=== PATIENT | female | born 1945 | race Hispanic/Latino ===

== ENCOUNTER 2017-06-13 07:52 | Day surgery (SDC) | payer OTHER ==
[~2017-06-13] VITALS: Ht 154.9 cm; Wt 83.5 kg
[~2017-06-13 07:52] MED LIST: OMEP20CA10 PO; SODIUM CHLORIDE 0.9% 1000ML 1,000 ML IV ONE; TRAM50TA4 PO
[2017-06-13 08:52] VITALS: BP 130/64
[2017-06-13] MEDS ORDERED: PROPOFOL 10 MG/ML 20ML VIAL IV ONE (10:31)
[2017-06-13 10:47] VITALS: BP 91/48
[2017-06-13 11:12] VITALS: BP 123/57
== END 2017-06-13 11:25 ==
LOC: DAH 07:52
PROVIDERS: ATTEND Internal Medicine Gastroenterology
DX: Z12.11 Encounter for screening for malignant neoplasm of colon (principal); K21.9 Gastro-esophageal reflux disease without esophagitis; M19.90 Unspecified osteoarthritis, unspecified site; K57.30 Diverticulosis of large intestine without perforation or abscess without bleeding; Z79.899 Other long term (current) drug therapy; Z68.32 Body mass index [BMI] 32.0-32.9, adult; K63.5 Polyp of colon
CPT/HCPCS: 45380; 88305; A4606; J2704; J7030

== ENCOUNTER 2019-01-06 20:25 | Emergency (ER) | payer MEDICARE, OTHER ==
[~2019-01-06 20:25] MED LIST changes: +OMEP-50 PO; -OMEP20CA10 PO; -SODIUM CHLORIDE 0.9% 1000ML 1,000 ML IV ONE
== END 2019-01-06 22:19 | disposition home or self-care (01) ==
LOC: EDH 20:25
DX: S82.142A Displaced bicondylar fracture of left tibia, initial encounter for closed fracture (principal); S93.602A Unspecified sprain of left foot, initial encounter; S93.402A Sprain of unspecified ligament of left ankle, initial encounter; K21.9 Gastro-esophageal reflux disease without esophagitis; M19.90 Unspecified osteoarthritis, unspecified site; W18.39XA Other fall on same level, initial encounter; Y93.89 Activity, other specified; Y92.89 Other specified places as the place of occurrence of the external cause; Y99.8 Other external cause status
CPT/HCPCS: 29505; 73562; 73610; 73630